=== PATIENT | male | born 1955 ===

== ENCOUNTER 2017-03-01 17:11 | Emergency (ER) | payer OTHER ==
[2017-03-01 17:11] VITALS: BMI 31.1
[2017-03-01 17:18] VITALS: BP 123/64; PULSE 76; RESP 16; TEMP 98.3; O2SAT 100
--- NOTE | 2017-03-01 17:52 | ED PDOC ---
HPI: Abdomen Time Seen by Provider: 03/01/17 17:33 Chief Complaint (Nursing): Abdominal Pain Chief Complaint (Provider): Epigastric and Right Upper Quadrant Abdominal Pain History Per: Patient History/Exam Limitations: no limitations Onset/Duration Of Symptoms: Days Outside of [place] travel?: No Current Symptoms Are (Timing): Still Present Location Of Pain/Discomfort: RUQ, Epigastric Associated Symptoms: Vomiting. denies: Fever, Diarrhea Additional Complaint(s): Cole Alvarez, a 61 year old male, present to the ED complaining of epigastric and right upper quadrant abdominal pain associated with vomiting x2 days. The patient states he had an outpatient ultrasound done a few days ago which revealed gallstones. Denies diarrhea, fever. Past Medical History Reviewed: Historical Data, Nursing Documentation, Vital Signs Vital Signs: Last Vital Signs Temp 98.3 F 03/01/17 17:14 Pulse 76 03/01/17 17:14 Resp 16 03/01/17 17:14 BP 123/64 03/01/17 17:14 Pulse Ox 100 03/01/17 17:57 - Medical History PMH: HTN - Surgical History Surgical History: Appendectomy - Family History Family History: States: Unknown Family Hx - Immunization History Hx Tetanus Toxoid Vaccination: No Hx Influenza Vaccination: No Hx Pneumococcal Vaccination: No - Home Medications Home Medications: Ambulatory Orders Medication Instructions Recorded Metoprolol Succinate [Toprol Xl] 100 mg PO DAILY 03/28/16 amLODIPine [Norvasc] 5 mg PO DAILY 03/28/16 Bimatoprost [Lumigan] 1 drop DAILY 03/01/17 Finasteride [Proscar] 5 mg PO DAILY 03/01/17 - Allergies Allergies/Adverse Reactions: Allergies Allergy/AdvReac Type Severity Reaction Status Date / Time Penicillins Allergy REDNESS Verified 03/01/17 17:13 Review of Systems ROS Statement: Except As Marked, All Systems Reviewed And Found Negative Constitutional: Negative for: Fever Gastrointestinal: Positive for: Vomiting, Abdominal Pain (Epigastric and Right Upper Quadrant abdominal pain.). Negative for: Diarrhea Physical Exam - Reviewed Nursing Documentation Reviewed: Yes Vital Signs Reviewed: Yes - Physical Exam Appears: Positive for: Non-toxic, No Acute Distress Head Exam: Positive for: ATRAUMATIC, NORMAL INSPECTION, NORMOCEPHALIC Skin: Positive for: Normal Color, Warm, Dry Eye Exam: Positive for: Normal appearance, EOMI, PERRL ENT: Positive for: Normal ENT Inspection Neck: Positive for: Normal, Painless ROM, Supple Cardiovascular/Chest: Positive for: Regular Rate, Rhythm, Chest Non Tender. Negative for: Tachycardia Respiratory: Positive for: Normal Breath Sounds. Negative for: Wheezing, Respiratory Distress Gastrointestinal/Abdominal: Positive for: Normal Exam, Bowel Sounds, Soft, Tenderness (Mild epigastric tenderness.). Negative for: Guarding, Rebound Back: Positive for: Normal Inspection. Negative for: L CVA Tenderness, R CVA Tenderness Extremity: Positive for: Normal ROM. Negative for: Tenderness, Pedal Edema, Deformity, Swelling Neurologic/Psych: Positive for: Alert, Oriented, Gait - Laboratory Results Result Diagrams: 03/01/17 18:20 03/01/17 18:20 - ECG O2 Sat by Pulse Oximetry: 100 (RA) Pulse Ox Interpretation: Normal Medical Decision Making Medical Decision Makin:33 Initial Impression: 61 year old male presenting with epigastric and right upper quadrant abdominal pain Initial Plan: * Comp metabolic Panel * CBC * CT Abdomen limited (GB included) * Reevaluation Scribe Attestation Documented by Yael Morales acting as a scribe for Lorenzo Lopez MD. Provider Attestation: All medical record entries made by the Scribe were at my direction and personally dictated by me. I have reviewed the chart and agree that the record accurately reflects my personal performance of the history, physical exam, medical decision making, and the department course for this patient. I have also personally directed, reviewed, and agree with the discharge instructions and disposition. Disposition - Clinical Impression Clinical Impression: Abdominal pain - Patient ED Disposition Is Patient to be Admitted: Transfer of Care - Disposition Disposition: Transfer of Care Disposition Time: 19:10 Condition: FAIR Patient Signed Over To: Freeman Castro
[2017-03-01 18:35] LABS: BASO # 0.1 K/uL (0.0-0.2); BASO % 0.6 % (0.0-2.0); EOS # 0.1 K/uL (0.0-0.7); EOS % 0.5 % (0.0-4.0); HEMOGLOBIN 13.9 g/dL (12.0-18.0); LYMPH # 0.9 K/uL (1.0-4.3); LYMPH % 8.6 % (20.0-40.0); MEAN CELL VOLUME 91.9 fl (80.0-94.0); MEAN CORPUSCULAR HGB CONC 33.8 g/dL (33.0-37.0); MEAN PLATELET VOLUME 8.4 fl (7.2-11.7); MONO # 0.6 K/uL (0.0-0.8); MONO % 6.2 % (0.0-10.0); NEUT # 8.4 K/uL (1.8-7.0); NEUT % 84.1 % (50.0-75.0); PLATELET COUNT 275 K/uL (130-400); RBC 4.47 Mil/uL (4.40-5.90); RED CELL DISTRIBUTION WIDTH 13.8 % (11.5-14.5)
[2017-03-01 18:41] LABS: ALB/GLOB RATIO 1.1 (1.0-2.1); ALBUMIN 3.9 g/dL (3.5-5.0); ALT/SGPT 445 U/L (21-72); AST/SGOT 560 U/L (17-59); BLOOD UREA NITROGEN 22 mg/dl (9-20); CALCIUM 9.1 mg/dL (8.4-10.2); GFR AFRICAN-AMERICAN > 60; GFR NON-AFRICAN AMERICAN > 60
--- NOTE | 2017-03-01 18:43 | US ---
HISTORY: Epigastric/RUQ pain COMPARISON: None. TECHNIQUE: Sonographic evaluation of the right upper quadrant of the abdomen. FINDINGS: LIVER: Measures 16.1 cm in length. Patent portal vein. Portal venous flow: Hepatopetal. Unremarkeable echogenicity of the liver parenchyma. No mass. No intrahepatic bile duct dilatation. Mildly lobulated contour of the liver can be seen with hepatocellular disease. GALLBLADDER: Solitary subcentimeter polyp 2 x 5 mm. . No gallstones. COMMON BILE DUCT: Measures 4.0 mm. No stones. No dilatation. PANCREAS: Obscured by overlying bowel gas. Non diagnostic assessment of the pancreas RIGHT KIDNEY: Measures 5.8 x 12.6 cm in length. Normal echogenicity. No calculus, mass, or hydronephrosis. AORTA: Obscured by overlying bowel gas. Non diagnostic assessment of abdominal aorta IVC: Unremarkable. OTHER FINDINGS: None . IMPRESSION: No acute findings related to/accounting for the clinical presentation. Additional benign and/or incidental findings described above. Limitations of the current examination: Nondiagnostic assessment of the pancreas and abdominal aorta.
[2017-03-01 19:15] LABS: SQUAMOUS EPITHIAL < 1 /hpf (0-5); URINE BACTERIA RARE (<OCC); URINE BILIRUBIN MODERATE (NEGATIVE); URINE BLOOD MODERATE (NEGATIVE); URINE CLARITY SLIGHTY-CLOUDY (Clear); URINE COLOR AMBER (YELLOW); URINE GLUCOSE (UA) NEG (Normal); URINE LEUKOCYTE ESTERASE NEG Leu/uL (Negative); URINE NITRATE NEGATIVE (NEGATIVE); URINE PROTEIN 100 mg/dL (NEGATIVE)
--- NOTE | 2017-03-01 19:49 | CT ---
EXAM: CT Abdomen and Pelvis Without Intravenous Contrast CLINICAL HISTORY: 61 years old, male; Pain; Abdominal pain; Flank; Right upper quadrant (ruq); Patient HX: Pat admitting to ed with epigastric and ruq pain associated with vomiting x 2 days/ surgeries appendectomy in 1979; Additional info: R/O kidney stone TECHNIQUE: Axial computed tomography images of the abdomen and pelvis without intravenous contrast. This CT exam was performed using one or more of the following dose reduction techniques: automated exposure control, adjustment of the mA and/or kV according to patient size, and/or use of iterative reconstruction technique. Coronal and sagittal reformatted images were created and reviewed. EXAM DATE/TIME: 03/01/2017 7:00 PM COMPARISON: US - ABDOMEN LIMITED (GB INCLUDED) 03/01/2017 6:02:50 PM FINDINGS: Lower thorax: Heart size is normal. There are coronary calcifications. There is patchy airspace disease in the left lower lobe. Right base is clear. There are no effusions. ABDOMEN: Liver: unremarkable Gallbladder and bile ducts: Gallbladder is partially distended. There is a small calcified stone. Common bile duct is unremarkable. 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 There is a single system on the left. There are no renal or ureteral stones. There is no pelvocaliectasis or ureterectasis. Stomach and bowel: Stomach is partially distended. Rotation is normal. There is no obstruction. Terminal ileum is unremarkable. Appendix is surgically absent.Colon is incompletely distended which limits evaluation. There is sigmoid diverticulosis Appendix: See stomach and bowel PELVIS: Bladder: unremarkable Reproductive: Prostate is mildly enlarged. Seminal vesicles are unremarkable. There is a small fat containing left inguinal hernia. ABDOMEN and PELVIS: Intraperitoneal space: There is no free air.There is no free fluid. Bones/joints: There are degenerative changes in the osseus structures. Soft tissues: There is a small fat containing umbilical hernia. Vasculature: There are vascular calcifications. Lymph nodes: There is no pathologic adenopathy. IMPRESSION: No renal or ureteral stones or hydronephrosis; gallstone: Diverticulosis without CT findings of diverticulitis; minimal left lower lobe airspace disease
--- NOTE | 2017-03-01 20:02 | ED PDOC ---
- Laboratory Results Result Diagrams: 03/01/17 18:20 03/01/17 18:20 - ECG O2 Sat by Pulse Oximetry: 100 (RA) Pulse Ox Interpretation: Normal Medical Decision Making Medical Decision Making: Patient signed out to provider at [address] Lopez pending [address]. 830PM: CT and U/S were negative for acute pathology. Pt. states that he has had no pain since being in ER. Informed of transaminitis, states he hasn't drank in many years, was never an excessive drinker. States he will followup with Dr. Mariela NIEVES, given results of bloodwork. Scribe Attestation Documented by Yael Morales acting as a scribe for Gloria Millard MD. Provider Attestation: All medical record entries made by the Scribe were at my direction and personally dictated by me. I have reviewed the chart and agree that the record accurately reflects my personal performance of the history, physical exam, medical decision making, and the department course for this patient. I have also personally directed, reviewed, and agree with the discharge instructions and disposition. Disposition - Clinical Impression Clinical Impression: Abdominal pain, Transaminitis - POA Present On Arrival: None - Disposition Referrals: Omar Jean MD [Staff Provider] - Ruben Sierra MD [Staff Provider] - Disposition: Routine/Home Disposition Time: 20:51 Condition: FAIR Additional Instructions: Please followup with Dr. Sierra as soon as possible. Prescriptions: Omeprazole 20 mg PO DAILY #30 capsule.dr Martinez [Mylicon Chew Tab] 80 mg PO BID #30 ctb Instructions: Epigastric Pain (ED)
[2017-03-01 21:13] LABS: BANDS 2 % (0-2); EOSINOPHIL 3 % (0-7); LYMPHOCYTE 9 % (20-50); MONOCYTE 6 % (0-10); NEUTROPHIL 80 % (42-75); PLATELET ESTIMATE NORMAL (NORMAL); TOTAL CELLS COUNTED 100
== END 2017-03-01 21:00 | disposition home or self-care (01) ==
LOC: H.ER 17:11
DX: R10.13 Epigastric pain (principal); R11.10 Vomiting, unspecified; I10 Essential (primary) hypertension; Z88.0 Allergy status to penicillin; Z90.49 Acquired absence of other specified parts of digestive tract